=== PATIENT | male | born 1985 | race African-American/Black ===

== ENCOUNTER 2016-09-11 14:15 | Emergency (ER) | payer OTHER ==
[2016-09-11] MEDS ORDERED: KETOROLAC TROMETHAMINE 60 MG/2 ML SDV IM ONE (15:43)
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
[2016-09-11 17:45] VITALS: BP 150/98
== END 2016-09-11 17:30 | disposition home or self-care (01) ==
LOC: ER 14:15
DX: M54.2 Cervicalgia (principal); M25.561 Pain in right knee; R52 Pain, unspecified; M54.9 Dorsalgia, unspecified; V87.7XXA Person injured in collision between other specified motor vehicles (traffic), initial encounter; F17.210 Nicotine dependence, cigarettes, uncomplicated
CPT/HCPCS: 99283; 96372; 72050; 73564; J1885

== ENCOUNTER 2017-03-13 14:57 | Emergency (ER) | payer OTHER ==
[2017-03-13] MEDS ORDERED: IBUPROFEN 600 MG TABLET PO ONE (16:07)
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
--- NOTE | 2017-03-13 17:02 | RADIOLOGY REPORT (SQ) ---
EXAM DESCRIPTION: KNEE RIGHT 4 VIEWS COMPLETED DATE/TIME: 03/13/2017 4:49 pm REASON FOR STUDY: rt knee pain COMPARISON: 09/11/2016 NUMBER OF VIEWS: Four views. TECHNIQUE: AP, lateral, and both oblique radiographic images acquired of the right knee. LIMITATIONS: None. FINDINGS: MINERALIZATION: Normal. BONES: No acute fracture or dislocation. No worrisome bone lesions. JOINT: Mild joint space narrowing laterally with small marginal osteophytes. Minimal posterior trejo lar osteophytes. Small joint effusion. SOFT TISSUES: No soft tissue swelling. No radio-opaque foreign body. OTHER: No other significant finding. IMPRESSION: Mild degenerative joint changes with small joint effusion. TECHNICAL DOCUMENTATION: JOB ID: [id number] [employer]- All Rights Reserved
[2017-03-13 17:57] VITALS: BP 140/98
== END 2017-03-13 17:57 | disposition home or self-care (01) ==
LOC: ER 14:57
DX: M25.561 Pain in right knee (principal); M25.461 Effusion, right knee; I10 Essential (primary) hypertension; F17.200 Nicotine dependence, unspecified, uncomplicated
CPT/HCPCS: 99283; 73564; L1830